=== PATIENT | male | born 1950 | race Caucasian/White ===

== ENCOUNTER 2020-05-15 11:18 | Outpatient (CLI) | payer MEDICARE ==
--- NOTE | 2020-05-15 12:01 | RAD ---
2 views of the left hip: 05/15/2020 COMPARISON: None HISTORY: Left hip pain FINDINGS: There is superior joint space narrowing involving the left hip. There is lateral acetabular osteophyte formation. No acute fracture or dislocation. There is osteophyte formation in the region of the greater tuberosity which appears to project over the intertrochanteric region on the fr ontal view. IMPRESSION: Moderate degenerative changes of the left hip. No acute fracture or dislocation seen.
== END 2020-05-15 11:19 | disposition home or self-care (01) ==
LOC: BICRAD 11:18
PROVIDERS: ATTEND Family Medicine
DX: M25.552 Pain in left hip (principal); M16.12 Unilateral primary osteoarthritis, left hip
CPT/HCPCS: 36415; 80053; 80061; 81001; 85025; G0103

== ENCOUNTER 2020-12-03 10:34 | Outpatient (CLI) | payer MEDICARE | END 2020-12-03 10:35 | disposition home or self-care (01) | LOC: BICRAD 10:34 | PROVIDERS: ATTEND Family Medicine | DX: J45.41 Moderate persistent asthma with (acute) exacerbation (principal) | CPT/HCPCS: 71046 ==

== ENCOUNTER 2022-02-02 10:10 | Outpatient (CLI) | payer MEDICARE | END 2022-02-02 10:11 | disposition home or self-care (01) | LOC: NM 10:10 | PROVIDERS: ATTEND Physician Assistant Medical | DX: R10.11 Right upper quadrant pain (principal) | CPT/HCPCS: 78227; A9537 ==